=== PATIENT | female | born 1945 | race Caucasian/White ===

== ENCOUNTER 2016-10-23 09:40 | Emergency (ER) | payer MEDICARE, OTHER ==
[~2016-10-23] VITALS: Wt 74.0 kg
[2016-10-23] MEDS ORDERED: KETOROLAC 15 MG INJ IV STA (10:06)
[2016-10-23] MEDS ORDERED: ONDANSETRON 4 MG INJ IV STA (10:06)
[2016-10-23] MEDS ORDERED: SOD CHLORIDE 0.9% 1,000 ML IV STA (10:06)
[2016-10-23] MEDS ORDERED: FAMOTIDINE 20 MG INJ IV STA (10:06)
[2016-10-23] MEDS ORDERED: METF500T4 PO (10:28)
[2016-10-23] MEDS ORDERED: BENA40TA41 PO (10:29)
[2016-10-23 10:47] LABS: ADD UMIC YES; URINE BILIRUBIN (Dip) NEGATIVE (NEGATIVE); URINE BLOOD (Dip) NEGATIVE (NEGATIVE); URINE COLOR LT. YELLOW (YELLOW); URINE GLUCOSE (Dip) NEGATIVE (NEGATIVE); URINE KETONES (Dip) NEGATIVE (NEGATIVE); URINE LEUKOCYTE ESTERASE (Dip) 3+ (NEGATIVE); URINE NITRITE (Dip) NEGATIVE (NEGATIVE); URINE TOTAL PROTEIN (Dip) NEGATIVE (NEGATIVE); URINE UROBILINOGEN (Dip) 0.2 E.U./dL (0.1-1.0)
[2016-10-23 10:59] LABS: BASOPHILS % 0.3 % (0.0-2.0); EOSINOPHILS # 0.1 10^3/ul (0.0-0.5); EOSINOPHILS % 1.6 % (0.0-7.0); HEMATOCRIT 40.1 % (37.0-47.0); HEMOGLOBIN 13.2 g/dl (12.0-16.0); LYMPHOCYTES # 1.3 10^3/ul (0.8-2.9); LYMPHOCYTES % 23.6 % (15.0-51.0); MEAN CORPUSCULAR HEMOGLOBIN 27.5 pg (29.0-33.0); MEAN CORPUSCULAR HGB CONC 32.9 g/dl (32.0-37.0); MEAN CORPUSCULAR VOLUME 83.8 fl (82.0-101.0); MEAN PLATELET VOLUME 7.4 fl (7.4-10.4); MONOCYTE # 0.4 10^3/ul (0.3-0.9); MONOCYTES % 6.7 % (0.0-11.0); NEUTROPHIL # 3.8 10^3/ul (1.6-7.5); NEUTROPHILS % 67.8 % (39.0-77.0); PLATELET COUNT 174 10^3/UL (140-440); RED BLOOD COUNT 4.79 10^6/ul (4.20-5.40); RED CELL DISTRIBUTION WIDTH 13.1 % (11.5-14.5); UNCORRECTED WBC 5.6 10^3/ul (4.8-10.8); WHITE BLOOD COUNT 5.6 10^3/ul (4.8-10.8)
[2016-10-23] MEDS ORDERED: CEFTRIAXONE 1 GM/50 ML (PMX) 50 ML IVPB ONE (11:00)
[2016-10-23 11:05] LABS: URINE RBCS NONE SEEN /HPF (0)
[2016-10-23 11:06] LABS: BACTERIA,URINE FEW
[2016-10-23 11:08] LABS: CONDITION 1
[2016-10-23 11:13] LABS: POTASSIUM 4.5 mmol/L (3.5-5.1)
[2016-10-23 11:16] LABS: ALBUMIN/GLOBULIN RATIO 1.37; BILIRUBIN,INDIRECT 0.4 mg/dl (0-1.1); BILIRUBIN,TOTAL 0.4 mg/dl (0.2-1.3); CALCIUM 9.6 mg/dl (8.4-10.2); CREATININE 0.75 mg/dl (0.44-1.00); TOTAL PROTEIN 6.9 g/dl (6.1-8.1)
--- NOTE | 2016-10-23 11:30 | RADRPT ---
PROCEDURE: CT Abdomen and Pelvis without contrast. CLINICAL INDICATION: Right flank pain TECHNIQUE: CT of the abdomen and pelvis was performed on a multi-detector scanner without IV contr ast. Coronal and sagittal images were reformatted from the axial data set. One or more of the foll owing dose reduction techniques were used: automated exposure control, adjustment of the mA and/or kV according to patient size, use of iterative reconstruction technique. CTDI = 16.95 mGy. DLP = 94 7.82 mGy-cm. COMPARISON: None. FINDINGS: CT abdomen: The lung bases are clear. The heart size is normal, without pericardial effusion. The liver is fat ty infiltrated, without evidence of focal mass. Gallbladder, biliary tree, pancreas, spleen, adrena l glands and kidneys are unremarkable. No urolithiasis or obstructive uropathy is identified. The stomach is grossly unremarkable. The aorta is of normal caliber. Aortic vascular calcifications are present. There is no retroperit berry lymphadenopathy. The rg hepatis region is clear. CT pelvis: No bowel obstruction, free intraperitoneal air or abscess is identified. Colonic diverticulosis is seen without diverticulitis. There is no appendicitis or colitis. Urinary bladder is grossly unrem arkable. Uterus is surgically absent. No pelvic mass, free fluid or lymphadenopathy is identified. The surrounding osseous structures are remarkable for degenerative spondylosis of the spine. No ost eolytic or osteoblastic lesion is detected. IMPRESSION: 1. Hepatic steatosis is noted. 2. Aortoiliac atherosclerotic calcifications are present. 3. Colonic diverticulosis is seen without diverticulitis. 4. Uterus is surgically absent. 5. No mass, lymphadenopathy, or focal acute inflammatory process is identified. 6. No urolithiasis or obstructive uropathy is seen. RPTAT: JJ .Angus Fisher MD, MD Date Time Electronically viewed and signed by .Angus Fisher MD, MD on 10/23/2016 11:30 .R/
--- NOTE | 2016-10-23 12:01 | ERD ---
ER Documentation Chief Complaint Date/Time DATE: 10/23/16 TIME: 11:59 Chief Complaint right flank pain since 4 days ago . no dysuria. sent by pmd for evaluation HPI This is a 71-year-old female who presents to the emergency room for evaluation of right-sided flank pain. This patient has had flank pain for the past 4 days. She was seen by her primary care physician, Dr. Jett who sent the patient to the emergency room for evaluation of possible pyelonephritis. The patient localizes the pain to the right side and describes as achy pain worse with urination. She denies any fevers but states that she does have mild nausea associated with this. ROS All systems reviewed and are negative except as per history of present illness. Medications Home Meds Reported Medications Benazepril Hcl* (Benazepril Hcl*) 40 Mg Tablet, 40 MG PO DAILY, #30 TAB 10/23/16 Metformin* (Glucophage*) 500 Mg Tab, 500 MG PO BID, #30 TAB 10/23/16 Allergies Allergies: Coded Allergies: No Known Allergies (Verified Allergy, Unknown, 01/17/09) PMhx/Soc History of Surgery: No Anesthesia Reaction: No Hx Neurological Disorder: No Hx Respiratory Disorders: No Hx Cardiac Disorders: No Hx Psychiatric Problems: No Hx Miscellaneous Medical Probl: Yes Hx Alcohol Use: No Hx Substance Use: No Hx Tobacco Use: No Smoking Status: Never smoker Physical Exam Vitals Vital Signs Date Time Temp Pulse Resp B/P Pulse Ox O2 Delivery O2 Flow Rate FiO2 10/23/16 09:52 98.1 65 20 136/63 98 Physical Exam INITIAL VITAL SIGNS: Reviewed by me GENERAL: The patient is well developed and appropriate for usual state of health in no apparent distress HEENT: Pupils equal, round, and reactive to light. EOMI. There is no scleral icterus. NECK: C-spine is soft and supple, there is no meningismus. There is no cervical lymphadenopathy. LUNGS: Clear to auscultation bilaterally. There are no rales, wheezes or rhonchi. HEART: Regular rate and rhythm, no murmurs, clicks, rubs or gallops. ABDOMEN: Right-sided CVAT, negative Wilder sign, otherwise soft, non-tender, non -distended. There are bowel sounds in all four quadrants. No rebound or guarding. EXTREMITIES: There is no peripheral cyanosis or edema. No focal swelling or erythema. NEUROLOGICAL: The patient moves all four extremities with 5/5 strength. Cranial nerves II - XII are intact. Normal gait. Alert and oriented SKIN: There is no apparent rash or petechiae. HEME/LYMPHATIC: There is no evidence of excessive bruising or lymphedema. PSYCHIATRIC: The patient does not appear anxious or depressed. Result Diagram: 10/23/16 1040 10/23/16 1040 Results 24 hrs Laboratory Tests Test 10/23/16 10:30 10/23/16 10:40 Urine Bacteria FEW Urine Bilirubin NEGATIVE Urine Clarity CLEAR Urine Color LT. YELLOW Urine Epithelial Cells FEW Urine Glucose NEGATIVE% Urine Hemoglobin NEGATIVE Urine Ketones NEGATIVE Urine Leukocyte Esterase 3+ Urine Microscopic RBC NONE SEEN/HPF Urine Microscopic WBC 10-25/HPF Urine Nitrite NEGATIVE Urine Specific [place] <=1.005 Urine Total Protein NEGATIVE Urine Urobilinogen 0.2 E.U./dL Urine pH 7.0 Alanine Aminotransferase (ALT/SGPT) 59IU/L Albumin 4.0g/dl Albumin/Globulin Ratio 1.37 Alkaline Phosphatase 63IU/L Anion Gap 18 Aspartate Amino Transf (AST/SGOT) 31IU/L Basophils # 0.010^3/ul Basophils % 0.3% Blood Morphology Comment Blood Urea Nitrogen 14mg/dl Calcium Level 9.6mg/dl Carbon Dioxide Level 26mmol/L Chloride Level 105mmol/L Creatinine 0.75mg/dl Direct Bilirubin 0.00mg/dl Eosinophils # 0.110^3/ul Eosinophils % 1.6% Globulin 2.90g/dl Glucose Level 104mg/dl Hematocrit 40.1% Hemoglobin 13.2g/dl Indirect Bilirubin 0.4mg/dl Lipase 45U/L Lymphocytes # 1.310^3/ul Lymphocytes % 23.6% Mean Corpuscular Hemoglobin 27.5pg Mean Corpuscular Hemoglobin Concent 32.9g/dl Mean Corpuscular Volume 83.8fl Mean Platelet Volume 7.4fl Monocytes # 0.410^3/ul Monocytes % 6.7% Neutrophils # 3.810^3/ul Neutrophils % 67.8% Nucleated Red Blood Cells # 0.010^3/ul Nucleated Red Blood Cells % 0.0/100WBC Platelet Count 28044^3/UL Potassium Level 4.5mmol/L Red Blood Count 4.7910^6/ul Red Cell Distribution Width 13.1% Sodium Level 144mmol/L Total Bilirubin 0.4mg/dl Total Protein 6.9g/dl White Blood Count 5.610^3/ul Current Medications Medications (Trade) Dose Ordered Sig/[place] Route PRN Reason Start Time Stop Time Status Last Admin Dose Admin Sodium Chloride (NS) 1,000 ml @ 1,000 mls/hr Q1H STAT IV 10/23/16 10:06 10/23/16 11:05 DC 10/23/16 10:22 Ondansetron HCl (Zofran Inj) 4 mg ONCE STAT IV 10/23/16 10:06 10/23/16 10:07 DC 10/23/16 10:22 Famotidine (Pepcid Iv) 20 mg ONCE STAT IV 10/23/16 10:06 10/23/16 10:07 DC 10/23/16 10:23 Ketorolac Tromethamine 15 mg 15 mg ONCE STAT IV 10/23/16 10:06 10/23/16 10:07 DC 10/23/16 10:22 Ceftriaxone Sodium (Rocephin) 50 ml @ 100 mls/hr ONCE ONCE IVPB 10/23/16 11:00 10/23/16 11:29 DC 10/23/16 11:28 Procedures/MDM CT abdomen pelvis without: 1. Hepatic steatosis is noted. 2. Aortoiliac atherosclerotic calcifications are present. 3. Colonic diverticulosis is seen without diverticulitis. 4. Uterus is surgically absent. 5. No mass, lymphadenopathy, or focal acute inflammatory process is identified. 6. No urolithiasis or obstructive uropathy is seen. This 71-year-old female presents to the ER for evaluation of right-sided flank pain. She did have extreme tenderness on palpation when I examine her and I did obtain a CT to rule out nephrolithiasis or an infected kidney stone. CT does not show any signs of kidney stone. The patient is likely suffering from pyelonephritis. She was given 1 g Rocephin. Urine culture was sent. The patient will be discharged home with a prescription for Zofran, and ciprofloxacin, and tramadol for breakthrough pain. I have talked to her primary care physician, Dr. jett who is okay with her plan of care at this time. There is no signs of systemic infection at this time. Departure Diagnosis: Primary Impression: Pyelonephritis Additional Impression: Flank pain Condition: Stable MARQUITA SWEET DO Oct 23, 2016 12:01
--- NOTE | 2016-10-23 12:01 | RADRPT ---
PROCEDURE: XR Chest. CLINICAL INDICATION: Cough TECHNIQUE: A single AP view of the chest was obtained. COMPARISON: None. FINDINGS: There is a right subclavian dual chamber pacemaker. No focal airspace opacification, pleural effusion or pneumothorax is seen. The cardiomediastinal si lhouette is upper limits of normal in size. The osseous structures demonstrate senescent changes. There are postsurgical changes from left shoulder arthroplasty. IMPRESSION: 1. No radiographic evidence of acute cardiopulmonary disease. 2. Right subclavian dual chamber pacemaker. RPTAT: HH .Lexi Babin MD, MD Date Time Electronically viewed and signed by .Lexi Babin MD, MD on 10/23/2016 12:01 .G/
[2016-10-23] MEDS ORDERED: TRAM-40 PO (12:03)
[2016-10-23] MEDS ORDERED: ONDA-43 PO (12:03)
[2016-10-23] MEDS ORDERED: CIPR500T4 PO (12:03)
[2016-10-23 12:17] VITALS: BP 145/67; PULSE 67; RESP 20; TEMP 98.3
== END 2016-10-23 12:18 | disposition home or self-care (01) ==
LOC: E/R 09:40
DX: N12 Tubulo-interstitial nephritis, not specified as acute or chronic (principal); R40.2142 Coma scale, eyes open, spontaneous, at arrival to emergency department; R40.2252 Coma scale, best verbal response, oriented, at arrival to emergency department; R40.2362 Coma scale, best motor response, obeys commands, at arrival to emergency department; R11.0 Nausea
CPT/HCPCS: 36415; 71010; 74176; 80053; 81001; 81003; 83690; 85025; 87086; 96374; 96375; 99285; J0696; J1885; J2405; J7030